=== PATIENT | male | born 1950 | race African-American/Black ===

== ENCOUNTER 2017-05-16 21:42 | Inpatient (IN) ==
[2017-05-16] MEDS ORDERED: cefTRIAXone 1,000 MG in SODIUM CHLORIDE 0.9% 100 ML IV STA (23:16)
[2017-05-16] MEDS ORDERED: NITROGLYCERIN 2% OINT 1 INCH/GM PACK TOP STA (23:16)
[2017-05-16] MEDS ORDERED: ONDANSETRON 4 MG/2 ML VIAL IV STA (23:16)
[2017-05-16] MEDS ORDERED: ASPIRIN 325 MG TABLET PO STA (23:16)
[2017-05-16] MEDS ORDERED: MORPHINE 2 MG/1 ML SYRINGE IV STA (23:16)
[2017-05-16] MEDS ORDERED: methylPREDNISolone SOD SUC 125 MG/2 ML VIAL IV STA (23:16)
[2017-05-16] MEDS ORDERED: FUROSEMIDE 100 MG/10 ML VIAL IV STA (23:16)
[2017-05-16] MEDS ORDERED: ALBUTEROL 2.5 MG/3 ML NEB RESP TX SCH (23:30)
[2017-05-16 23:49] LABS: Basophils % 0.4 % (0.0-0.8); Eosinophils # 0.2 10*3/uL (0.0-0.87); Eosinophils % 2.4 % (0.00-10.9); Hematocrit 34.9 VOL% (42.0-52.0); Hemoglobin 11.6 GM/DL (14.0-18.0); Immature Granulocytes % 0.5 %; Immature Granulocytes Absolute 0.04 #; Lymphocytes # 0.8 10*3/uL (1.4-4.0); Lymphocytes % 10.8 % (21.2-54.2); Mean Corpuscular HGB Conc 33.2 GM/DL (32-36); Mean Corpuscular Hemoglobin 36 PG (27-34); Mean Corpuscular Volume 106.7 FL (87-102); Mean Platelet Volume 9.6 FL (9.6-12.0); Monocytes # 0.7 10*3/uL (0.11-0.8); Monocytes % 9.8 % (1.7-12.7); Neutrophils # 5.7 10*3/uL (1.4-7.4); Neutrophils % 76.1 % (38.7-73.9); Platelet Count 189 T/CUMM (130-400); Red Blood Count 3.27 MC/CUMM (3.8-5.5); Red Cell Distribution Width 13.1 % (9.3-17.3); White Blood Count 7.5 T/CUMM (4-12)
[2017-05-16] MEDS ORDERED: ONDANSETRON 4 MG/2 ML VIAL ONE (23:56)
[2017-05-16] MEDS ORDERED: methylPREDNISolone SOD SUC 125 MG/2 ML VIAL ONE (23:56)
[2017-05-16 23:57] LABS: PT Patient Result 10.9 SECS
[2017-05-16] MEDS ORDERED: cefTRIAXone 1,000 MG VIAL ONE (23:57)
[2017-05-16] MEDS ORDERED: FUROSEMIDE 100 MG/10 ML VIAL ONE (23:57)
[2017-05-16] MEDS ORDERED: ASPIRIN 325 MG TABLET ONE (23:57)
[2017-05-16] MEDS ORDERED: MORPHINE 2 MG/1 ML SYRINGE ONE (23:57)
[2017-05-16] MEDS ORDERED: NITROGLYCERIN 2% OINT 1 INCH/GM PACK TOP ONE (23:57)
[2017-05-17 00:09] LABS: Albumin 3.3 G/DL (3.4-5.0); Bilirubin,Total 0.6 MG/DL (0.2-1.0); Calcium 8.5 MG/DL (8.5-10.1); Magnesium 1.4 MG/DL (1.8-2.4); Osmolality,Calculated 271.1 MOS/KG (273-304); Total Protein 7.4 G/DL (6.4-8.3)
[2017-05-17 00:10] LABS: Troponin I Only 0.057 NG/ML (0.00-0.045)
[2017-05-17] MEDS ORDERED: MAGNESIUM SULF RIDER 2 GM in PREMIX 1 EACH IV STA (00:36)
[2017-05-17] MEDS ORDERED: MAGNESIUM SULF RIDER 50 ML IV ONE (00:42)
[2017-05-17 01:20] LABS: Apearance,Urine CLEAR (Clear); Bacteria,Urine Occasional /HPF (Few); Bilirubin,Urine Negative (Negative); Blood, Urine Negative (Negative); Glucose,Urine (UA) Negative (Negative); Hyaline Casts,Urine 2 /LPF (0-3); Ketones,Urine Negative (Negative); Mucus,Urine Occasional /LPF (Occasional); Nitrite,Urine Negative (Negative); Protein,Urine 100 MG/DL; RBC,Urine 1 /HPF (0-4); Squamous Epithelial Cell,Urine Occasional /HPF (0-10); Urine Color Straw (Yellow); Urine Specific Gravity 1.006 (1.001-1.035); Urine Urobilinogen < 2.0 EU/DL (0.2-1.0); WBC,Urine 1 /HPF (0-6)
[2017-05-17] MEDS ORDERED: GLUCAGON 1 MG VIAL IM PRN (02:31)
[2017-05-17] MEDS ORDERED: ONDANSETRON 4 MG/2 ML VIAL IV PRN (02:31)
[2017-05-17] MEDS ORDERED: DEXTROSE 50% 25 GM/50 ML VIAL IV PRN (02:31)
[2017-05-17] MEDS ORDERED: MORPHINE 2 MG/1 ML SYRINGE IV PRN (02:31)
[2017-05-17 06:10] LABS: Calcium 7.9 MG/DL (8.5-10.1); Osmolality,Calculated 282.8 MOS/KG (273-304); Potassium 3.5 MMOL/L (3.5-5.1)
[2017-05-17 06:21] LABS: Risk Ratio 4.18; VLDL CHOLESTEROL 14.6 MG/DL
[2017-05-17] MEDS ORDERED: FOLIC ACID 1 MG TABLET PO SCH (09:00)
[2017-05-17] MEDS ORDERED: glyBURIDE/METFORMIN 5-500 MG TABLET PO SCH (09:00)
[2017-05-17] MEDS ORDERED: MELOXICAM 7.5 MG TABLET PO SCH (09:00)
[2017-05-17] MEDS ORDERED: VALSARTAN 160 MG TABLET PO SCH (09:00)
[2017-05-17] MEDS ORDERED: DOCUSATE SODIUM 100 MG CAPSULE PO SCH (09:00)
[2017-05-17] MEDS ORDERED: ASPIRIN EC 81 MG TABLET PO SCH (09:00)
[2017-05-17] MEDS ORDERED: PANTOPRAZOLE 40 MG TABLET PO SCH (09:00)
[2017-05-17] MEDS ORDERED: FUROSEMIDE 40 MG/4 ML VIAL IV SCH (09:00)
[2017-05-17] MEDS ORDERED: BENAZEPRIL 10 MG TABLET PO SCH (09:00)
[2017-05-17] MEDS ORDERED: MONTELUKAST 10 MG TABLET PO SCH (09:00)
[2017-05-17] MEDS: ENOXAPARIN 40 MG/0.4 ML SYRINGE SUBCUT SCH ×2 (09:40→09:53)
[2017-05-17] MEDS: INSULIN REGULAR 100 UNIT/ML SUBCUT SCH ×3 (09:48→11:57)
[2017-05-17 12:15] VITALS: BP 133/67
[2017-05-22] MEDS ORDERED: METHOTREXATE 2.5 MG TABLET PO SCH (01:19)
== END 2017-05-17 13:43 | disposition home or self-care (01) | DRG 293 ==
LOC: N.ED 21:42 → N.EDINP 05-17 01:08 → N.3E 05-17 02:30
PROVIDERS: ADMIT Internal Medicine; ATTEND Internal Medicine